=== PATIENT | female | born 1955 | race Caucasian/White ===

== ENCOUNTER 2019-12-14 13:40 | Emergency (ER) | payer OTHER, MEDICAID ==
[~2019-12-14] VITALS: Ht 167.6 cm; Wt 88.0 kg
[~2019-12-14 13:40] MED LIST: AMIT50TA3; ASPI81TA10; DICL1GEL26; HYDR-2595; HYDR2TAB2; LIDO5DIS21; ROPI0.5T18; SIMV-13
[2019-12-14 14:35] VITALS: BP 139/67
[2019-12-14] MEDS ORDERED: KETOROLAC TROMETH 60MG/2ML VIAL IM ONE (14:45)
== END 2019-12-14 15:35 | disposition home or self-care (01) ==
LOC: ER 13:40
DX: S60.221A Contusion of right hand, initial encounter (principal); E78.5 Hyperlipidemia, unspecified; I10 Essential (primary) hypertension; Z88.1 Allergy status to other antibiotic agents; Z90.49 Acquired absence of other specified parts of digestive tract; Z79.899 Other long term (current) drug therapy; W20.8XXA Other cause of strike by thrown, projected or falling object, initial encounter; Y93.89 Activity, other specified; Y92.098 Other place in other non-institutional residence as the place of occurrence of the external cause; Y99.8 Other external cause status
CPT/HCPCS: 73110; 73130; 96372; 99283; J1885

== ENCOUNTER 2025-04-14 10:00 | Inpatient (IN) | payer OTHER, MEDICAID ==
[~2025-04-14] VITALS: Ht 167.6 cm; Wt 94.5 kg
[~2025-04-14 10:00] MED LIST changes: +AMIT50TA12; -AMIT50TA3; -ROPI0.5T18; +ROPI0.5T26; -SIMV-13; +SIMV40TA18
--- NOTE | 2025-04-14 10:35 | ED.PDOC ---
History of Present Illness HPI Comments 70-year-old female BIBA with grandchild by bedside with prior medical history of arthritis, high lipids, hypertension, CHF, DVT X three days ago-diagnosed, CVA X4 recently in October; surgical history of hip surgery, knee surgery, C- section, gastric bypass, cholecystectomy, tonsillectomy and then chief complaint of chest pain. EMS report on the patient sitting on the couch, still when she sudden sharp pain of chest pain which was a 7/10 initially. Patient states on the chest pain going from the chest up to the neck. In route the patient was given 20 gauge one nitro, answering 124 g of aspirin which brought the chest pain down to a 5/10. Patient was recently diagnosed with a PE on the left lower extremity on Wednesday of 04/09/2025. Denies chills, fever, N/V/D, SOB. No other associated symptoms, modifiers, recent injuries or sick contacts present at this time. Chief Complaint: Chest Pain Time Seen by MD: 10:00 Primary Care Provider: SUZY LANGE Reviewed Notes: Nurses Notes, Solar Systems Designer Notes, Medications, Allergies Allergies: Coded Allergies: Erythromycin (Verified Allergy, 05/24/13) Home Meds Reported Medications Hydromorphone Hcl (Hydromorphone Hcl) 2 Mg Tab, 2, #25 09/27/13 Diclofenac Sodium (Topical) (Voltaren) 1 % Gel, 1, #100 09/27/13 Aspirin (Aspirin Ec Low Dose) 81 Mg Tab, 81, #100 09/27/13 Simvastatin (Simvastatin) 40 Mg Tab, 40, #30 09/27/13 Lidocaine (LIDODERM 5% TOPICAL PATCH) 1 Patch Ph, 1, #60 09/27/13 Ropinirole Hydrochloride (Ropinirole Hcl) 0.5 Mg Tab, 0.5, #90 09/27/13 Hydrocodone-Acetaminophen (Hydrocodone/Acetaminophen) 1 Tab Tab, 1, #150 09/27/13 Amitriptyline Hcl (Amitriptyline Hcl) 50 Mg Tab, 50, #30 09/27/13 Information Source: Patient, Relative (GrandChild) Mode of Arrival: EMS Severity: Moderate Timing: Minutes Duration: Since onset, Minutes Prehospital treatment: None Past Medical History PAST MEDICAL HISTORY: Arthritis, CHF, CVA, High Lipids, HTN Past Medical History (Other): DVT Surgical History: Cholecystectomy, , Tonsillectomy Surgical History (Other): Hip surgery, knee surgery, gastric bypass 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 MACHINE OPERATOR 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: No Pertinent 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 MACHINE 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 History Family History Family History: Reviewed,noncontributory to illness, Unknown Social History Smoker: Non-Smoker Alcohol: Unknown Drugs: Unknown Lives In: Home Constitutional: denies: chills, diaphoresis, fatigue, fever, malaise, sweats, weakness, others EENTM: denies: blurred vision, double vision, ear bleeding, ear discharge, ear drainage, ear pain, ear ringing, eye pain, eye redness, hearing loss, mouth pain, mouth swelling, nasal discharge, nose bleeding, nose congestion, nose pain, photophobia, tearing, throat pain, throat swelling, voice changes, others Respiratory: denies: cough, hemoptysis, orthopnea, SOB at rest, shortness of breath, SOB with excertion, stridor, wheezing, others Cardiovascular: reports: chest pain; denies: dizzy spells, diaphoresis, Dyspnea on exertion, edema, irregular heart beat, left arm pain, lightheadedness, palpitations, PND, syncope, others Gastrointestinal: denies: abdomen distended, abdominal pain, blood streaked bowels, constipated, diarrhea, dysphagia, difficulty swallowing, hematemesis, melena, nausea, poor appetite, poor fluid intake, rectal bleeding, rectal pain, vomiting, others Genitourinary: denies: abnormal vagina bleeding, burning, dyspareunia, dysuria, flank pain, frequency, hematuria, incontinence, pain, , vagina discharge, urgency, others Neurological: denies: dizziness, fainting, headache, left sided numbness, left sided weakness, numbness, paresthesia, pre-existing deficit, right sided numbness, right sided weakness, seizure, speech problems, tingling, tremors, weakness, others Musculoskeletal: denies: back pain, gout, joint pain, joint swelling, muscle pain, muscle stiffness, neck pain, others Integumetry: denies: bruises, change in color, change in hair/nails, dryness, laceration, lesions, lumps, rash, wounds, others Allergic/Immunocompromised: denies: Difficulty Healing, Frequent Infections, Hives, Itching, others Hematologic/Lymphatic: denies: anemia, blood clots, easy bleeding, easy bruising, swollen glands, others Endocrine: denies: excessive hunger, excessive sweating, excessive thirst, excessive urination, flushing, intolerance to cold, intolerance to heat, unexplained weight gain, unexplained weight loss, others Psychiatric: denies: anxiety, bipolar disorder, depression, hopeless, panic disorder, schizophrenia, sleepless, suicidal, others All Other Systems: Reviewed and Negative Physical Exam General Appearance: Moderate Distress, Normal HEENT: Normal ENT Inspection, Pharynx Normal, TMs Normal Neck: Full Range of Motion, Non-Tender, Normal, Normal Inspection Respiratory: Chest Non-Tender, Lungs Clear, No Accessory Muscle Use, No Respiratory Distress, Normal Breath Sounds Cardiovascular: No Edema, No JVD, No Murmur, No Gallop, Normal Peripheral Pulses, Regular Rate/Rhythm Breast Exam: Deferred Gastrointestinal: No Organomegaly, Non Tender, No Pulsatile Mass, Normal Bowel Sounds, Soft Genitalia: Deferred Pelvic: Deferred Rectal: Deferred Extremities: No calf tenderness, Normal capillary refill, Normal inspection, Normal range of motion, Non-tender, No pedal edema Musculoskeletal : Apperance: Normal Neurologic: Alert, digital strategy specialist II-XII nml as Tested, No Motor Deficits, Normal Affect, Normal Mood, No Sensory Deficits Cerebellar Function: NOT DONE Reflexes: NOT DONE Skin: Dry, Normal Color, Warm Peripheral Pulses: 3+ Radial (R), 3+ Radial (L) Lymphatic: No Adenopathy Was a procedure done? Was a procedure done?: No Differential Dx Considerations may include: CHF Electrolyte imbalance X-Ray, Labs, Meds, VS Vital Signs Date Time Temp Pulse Resp B/P (MAP) Pulse Ox O2 Delivery O2 Flow Rate FiO2 04/14/25 12:00 69 04/14/25 11:28 66 04/14/25 10:54 63 11 100 Room Air* 0 21 04/14/25 10:54 98.8 63 11 97/51 (66) 100 98.8 04/14/25 10:14 65 04/14/25 10:09 97.9 73 22 107/93 (98) 97 97.9 Lab Test 04/14/25 10:48 Range/Units White Blood Count 3.9 L 4.4-10.8 10^3/uL Red Blood Count 3.81 L 4.0-5.20 10^6/uL Hemoglobin 10.7 L 12.2-16.2 g/dL Hematocrit 33.1 L 36.0-46.0 % Mean Corpuscular Volume 86.9 80.0-100.0 fL Mean Corpuscular Hemoglobin 28.2 28.0-32.0 pg Mean Corpuscular Hemoglobin Concent 32.4 32.0-36.0 g/dL Red Cell Distribution Width 15.1 H 11.8-14.3 % Platelet Count 224 140-450 10^3/uL Mean Platelet Volume 7.3 6.9-10.8 fL Neutrophils (%) (Auto) 49.0 37.0-80.0 % Lymphocytes (%) (Auto) 40.1 10.0-50.0 % Monocytes (%) (Auto) 8.4 0.0-12.0 % Eosinophils (%) (Auto) 2.2 0.0-7.0 % Basophils (%) (Auto) 0.3 0.0-2.0 % Neutrophils # (Auto) 1.9 1.6-8.6 10 ^3/uL Lymphocytes # (Auto) 1.6 0.4-5.4 10 ^3/uL Monocytes # (Auto) 0.3 0-1.3 10 ^3/uL Eosinophils # (Auto) 0.1 0-0.8 10 ^3/uL Basophils # (Auto) 0 0-0.2 10 ^3/uL Nucleated Red Blood Cells 0.1 % Sodium Level 140 136-145 mmol/L Potassium Level 4.5 3.5-5.1 mmol/L Chloride Level 103 98-107 mmol/L Carbon Dioxide Level 30 20-31 mmol/L Anion Gap 7 5-15 Blood Urea Nitrogen 20 9-23 mg/dL Creatinine 0.74 0.550-1.02 mg/dL Glomerular Filtration Rate Calc 86 >90 mL/min BUN/Creatinine Ratio 27.0 H 10.0-20.0 Serum Glucose 102 74-106 mg/dL Calcium Level 9.5 8.7-10.4 mg/dL Troponin I High Sensitivity 11 </=34 ng/L B-Type Natriuretic Peptide 209.41 0-100 pg/mL [facility] [id number] [place] [id number] Ph: [phone] DIAGNOSTIC IMAGING Diagnostic Imaging Report : [id number] Signed PATIENT: MARTHA DAVIS ACCT: [id number] UNIT: [id number] : 1955 LOC: ER ROOM / BED: / AGE / SEX: 70 / F ADM STATUS: REG ER SERVICE 1040 ORDERING PHYSICIAN: MONIQUE OVERTON MD PROCEDURE(s): CXRP - CHEST PORTABLE REASON: sob ORDER NUMBER(s): [id number], ACCESSION NUMBER(s): [id number] XY CHEST PORTABLE, HISTORY: sob COMPARISON: None None TECHNICAL DATA: 1 view of the chest was obtained. FINDINGS: Lines and tubes: None Cardiomediastinal silhouette: normal Pulmonary vasculature: normal Lung expansion: normal Lung airspace: normal Lung interstitium: normal Pleura: normal Pneumothorax: no Bones: Unremarkable Other: no IMPRESSION: No acute intrathoracic abnormality. ATED BY: PIERRE HENSLEY MD DICTATED DATE/TIME: 04/14/25 112 SIGNED BY: PIERRE HENSLEY MD SIGNED DATE/TIME: 04/14/25 112 CC: Patient alert. Complaining of chest pain shortness a breath. Completing sentences. Vitals stable. Recently in this hospital. BNP slightly elevated. Was given Lasix. Blood pressure on the low side. EKG reviewed does not show any acute changes. Echocardiogram. Cardiology consultation. Explained to the patient that she will be admitted for further workup of CHF. Continue monitoring. Time of 1ST Reevaluation: 10:30 Reevaluation 1ST: Unchanged Patient Education/Counseling: Diagnosis, Treatment, Prognosis Family Education/Counseling: Diagnosis, Treatment, Prognosis Departure 1 Departure Time of Disposition: 12:49 Impression: Primary Impression: CHF (congestive heart failure) Qualified Codes: I50.43 - Acute on chronic combined systolic (congestive) and diastolic (congestive) heart failure Additional Impression: Cardiomyopathy Disposition: ADMITTED INPATIENT Admit to: Med Surg Condition: Guarded Critical Care Note Critical Care Time?: Yes (90 min-critical care time only) Critical care comment: Monitoring for worsening of chest pain heart failure Stability Stability form required: No Heart Score Heart Score: Heart Score Response (Comments) Value History Slightly Suspicious 0 EKG Normal 0 Age >65 2 Risk Factors >3 or Hx ASHD 2 Troponin Normal limit 0 Total 4 I personally scribed for MONIQUE OVERTON MD ([email or web address]) on 04/14/25 at 10:35. E lectronically submitted by Harish Del Cid ([email or web address]). I personally scribed for MONIQUE OVERTON MD ([email or web address]) on 04/14/25 at 11:52. Electronically submitted by Harish Del Cid ([email or web address]). MONIQUE OVERTON MD April 14, 2025 10:35
[2025-04-14 10:54] VITALS: PULSE 63; RESP 11; O2SAT 100
[2025-04-14 11:04] LABS: Basophils # (auto) 0 10 ^3/uL (0-0.2); Basophils % (auto) 0.3 % (0.0-2.0); Eosinophils # (auto) 0.1 10 ^3/uL (0-0.8); Eosinophils % (auto) 2.2 % (0.0-7.0); Hematocrit 33.1 % (36.0-46.0); Hemoglobin 10.7 g/dL (12.2-16.2); Lymphocytes # (auto) 1.6 10 ^3/uL (0.4-5.4); Lymphocytes % (auto) 40.1 % (10.0-50.0); Mean Corpuscular Hemoglobin 28.2 pg (28.0-32.0); Mean Corpuscular Hgb Conc. 32.4 g/dL (32.0-36.0); Mean Corpuscular Volume 86.9 fL (80.0-100.0); Monocytes # (auto) 0.3 10 ^3/uL (0-1.3); Monocytes % (auto) 8.4 % (0.0-12.0); Neutrophils # (auto) 1.9 10 ^3/uL (1.6-8.6); Nucleated Red Blood Cells % 0.1 %; Platelet Count (auto) 224 10^3/uL (140-450); Red Blood Cells 3.81 10^6/uL (4.0-5.20); Red Cell Distribution Width 15.1 % (11.8-14.3); White Blood Cell 3.9 10^3/uL (4.4-10.8)
[2025-04-14 11:10] LABS: Chloride 103 mmol/L (98-107); Potassium 4.5 mmol/L (3.5-5.1); Sodium 140 mmol/L (136-145)
[2025-04-14 11:11] LABS: Anion Gap 7 (5-15); Calcium 9.5 mg/dL (8.7-10.4); Carbon Dioxide 30 mmol/L (20-31)
[2025-04-14 11:16] LABS: Blood Urea Nitrogen 20 mg/dL (9-23); Glucose 102 mg/dL (74-106)
--- NOTE | 2025-04-14 11:24 | DVH ---
XY CHEST PORTABLE, HISTORY: sob COMPARISON: None None TECHNICAL DATA: 1 view of the chest was obtained. FINDINGS: Lines and tubes: None Cardiomediastinal silhouette: normal Pulmonary vasculature: normal Lung expansion: normal Lung airspace: normal Lung interstitium: normal Pleura: normal Pneumothorax: no Bones: Unremarkable Other: no IMPRESSION: No acute intrathoracic abnormality.
[2025-04-14 12:47] LABS: Urine Bacteria None Seen /hpf (None Seen)
[2025-04-14 12:58] LABS: Urine Blood Negative /uL (Negative); Urine Clarity Clear (Clear); Urine Color Light-Yellow (Yellow); Urine Protein, UAD Negative (Negative); Urine Specific Gravity 1.014 (1.001-1.035); Urine Squamous Epithelial Cell FEW /hpf (<5); Urine Urobilinogen 2 mg/dL (Negative)
[2025-04-14] MEDS: IOHEXOL 350 MG/ML 100ML IJ ONE ×2 (14:34→15:50)
--- NOTE | 2025-04-14 14:52 | DVH ---
US BiLat Lower DVT HISTORY: states she has new diagnosis DVT COMPARISON: None TECHNIQUE: Duplex doppler evaluation of the deep venous system of the lower extremity from the common femoral veins, superficial femoral vein, great saphenous vein, deep femoral vein, popliteal vein, an d calf veins, including color doppler and spectral/pulsed waveform analysis, was performed. FINDINGS: Right: - Common femoral vein: Compressible - Deep femoral vein: Compressible - Femoral vein: Compressible - Popliteal vein: Compressible - Posterior tibial vein: Waveforms present - Other: Nothing Left: - Common femoral vein: Compressible - Deep femoral vein: Compressible - Femoral vein: Compressible - Popliteal vein: Compressible - Posterior tibial vein: Waveforms present - Other: Avascular structure along the left popliteal fossa and medial knee could be a Gallardo cyst. IMPRESSION: No right or left lower extremity deep venous thrombosis.
[2025-04-14] MEDS ORDERED: APIX5TAB PO ×2 (15:24→22:16)
[2025-04-14] MEDS ORDERED: AMIO100T3 PO (15:24)
[2025-04-14] MEDS ORDERED: FURO40TA4 PO (15:24)
[2025-04-14] MEDS ORDERED: ATOR40TA52 PO (15:24)
[2025-04-14] MEDS ORDERED: OXYC-998 PO (15:24)
[2025-04-14] MEDS ORDERED: ROPI1TAB78 PO (15:24)
[2025-04-14] MEDS ORDERED: FLUO-470 PO (15:24)
[2025-04-14] MEDS ORDERED: OXYC5CAP69 PO (15:24)
[2025-04-14] MEDS ORDERED: ASPI1TAB20 PO (15:24)
--- NOTE | 2025-04-14 16:16 | DVHHP2 ---
History of Present Illness Reason for Visit: Chest pain History of Present Illness Yari Siddiqui is a 70-year-old female with past medical history of mitral valve stenosis, CHF, hyperlipidemia, chronic pain, arthritis, CVA, and new diagnosis of DVT Wednesday04/11/2025, who came in for sudden onset of chest pain and shortness of breath. Patient had an ultrasound of left leg on Wednesday that showed a DVT. Her doctor increased her Eliquis from 5 mg to 10 mg BID. This morning she got up was walking in her kitchen when she had a sudden onset of chest pain that radiated to her back and jaw with associated shortness of breath prompting her daughter to bring her to the hospital. Daughter has a print out of the critical results from the ultrasound with her. Ultrasound of bilateral lower extremities completed here shows no DVT. Patient was also seen at [place] last week regarding her mitral valve. She needs to have it replaced and they are discussing what will be the best approach. 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: CVA (October 2024, left side weakness, memory difficulties) Heme/Onc: Other (DVT) Musculoskeletal: Chronic low back pain, Osteoarthritis Past Surgical History: Cholecystectomy, , Other (gastric bypass), Total hip replacement (bilateral), Total knee replacement, Tonsillectomy Smoke: No ALCOHOL: none Drugs: None Lives: with Family Domestic Violence: Neg Review of Systems Constitutional: No: Fever, Chills, Sweats, Weakness, Malaise, Other Eyes: No: Pain, Vision change, Conjunctivae inflammation, Eyelid inflammation, Other, Redness ENT: No: Ear pain, Ear discharge, Nose pain, Nose discharge, Nose congestion, Mouth pain, Mouth swelling, Throat pain, Throat swelling, Other Respiratory: Shortness of breath; No: Cough, Dry, SOB with excertion, Wheezing, Hemoptysis, Pleuritic Pain, Sputum, Wheezing, Other Cardiovascular: Chest Pain (radiates to jaw and back); No: Palpitations, Orthopnea, Paroxysmal Noc. Dyspnea, Edema, Lt Headedness, Other Gastrointestinal: No: Nausea, Vomiting, Abdominal Pain, Diarrhea, Constipation, Melena, Hematochezia, Other Genitourinary: No Dysuria, No Frequency, No Incontinence, No Hematuria, No Retention, No Other Musculoskeletal: No: other, neck pain, shoulder pain, arm pain, back pain, hand pain, leg pain, foot pain Skin: No: Rash, Lesions, Jaundice, Bruising, Other Allergies: Coded Allergies: Erythromycin (Verified Allergy, 05/24/13) Medications Current Medications Medications Dose Ordered Sig/Zackery Route Start Time Stop Time Status Last Admin Dose Admin Apixaban 10 mg BID PO 04/14/25 22:00 UNV Aspirin 81 mg DAILY PO 04/15/25 10:00 UNV Fluoxetine HCl 20 mg HS PO 04/14/25 22:00 UNV Furosemide 40 mg DAILY PO 04/15/25 10:00 UNV Patient Own Medication 1 tab DAILY PO 04/15/25 10:00 UNV Patient Own Medication 1 tab HS PO 04/14/25 22:00 UNV Patient Own Medication 1 cap BID PO 04/14/25 22:00 UNV Patient Own Medication 10 mg TID PO 04/14/25 22:00 UNV Patient Own Medication 1 tab TID PO 04/14/25 22:00 UNV Exam Vital Signs Vital Signs Date Time Temp Pulse Resp B/P (MAP) Pulse Ox O2 Delivery O2 Flow Rate FiO2 04/14/25 15:41 98.2 67 13 96/54 (68) 94 98.2 04/14/25 10:54 Room Air* 0 21 General Appearance: Alert, Oriented X3, Cooperative, mild distress HEENT: Atraumatic, PERRLA Respiratory: Clear to auscultation, Normal air movement Cardiovascular: Normal S1, Normal S2, No murmurs, Other (Low BP) Abdominal: Normal bowel sounds, Soft, No tenderness Extremities: No clubbing, No cyanosis, No edema, Normal pulses, No tenderness/swelling Skin: No rashes, No breakdown, No significant lesion Neuro: Normal gait, Normal speech, Strength at 5/5 X4 ext, Normal tone Psych/Mental Status: Mental status NL, Mood NL Labs/Xrays Labs Test 04/14/25 12:34 04/14/25 10:48 Range/Units Urine Color Light-yellow Yellow Urine Clarity Clear Clear Urine pH 7.0 5.0-9.0 Urine Specific Welsh 1.014 1.001-1.035 Urine Protein Negative Negative Urine Ketones Negative Negative Urine Blood Negative Negative /uL Urine Nitrite Negative Negative Urine Bilirubin Negative Negative Urine Urobilinogen 2 H Negative mg/dL Urine Leukocyte Esterase 1+ Negative /uL Urine RBC 2 0 - 4 /hpf Urine Microscopic WBC 0-5 /HPF Urine Squamous Epithelial Cells Few <5 /hpf Urine Bacteria None seen None Seen /hpf Urine Glucose Normal Normal mg/dL White Blood Count 3.9 L 4.4-10.8 10^3/uL Red Blood Count 3.81 L 4.0-5.20 10^6/uL Hemoglobin 10.7 L 12.2-16.2 g/dL Hematocrit 33.1 L 36.0-46.0 % Mean Corpuscular Volume 86.9 80.0-100.0 fL Mean Corpuscular Hemoglobin 28.2 28.0-32.0 pg Mean Corpuscular Hemoglobin Concent 32.4 32.0-36.0 g/dL Red Cell Distribution Width 15.1 H 11.8-14.3 % Platelet Count 224 140-450 10^3/uL Mean Platelet Volume 7.3 6.9-10.8 fL Neutrophils (%) (Auto) 49.0 37.0-80.0 % Lymphocytes (%) (Auto) 40.1 10.0-50.0 % Monocytes (%) (Auto) 8.4 0.0-12.0 % Eosinophils (%) (Auto) 2.2 0.0-7.0 % Basophils (%) (Auto) 0.3 0.0-2.0 % Neutrophils # (Auto) 1.9 1.6-8.6 10 ^3/uL Lymphocytes # (Auto) 1.6 0.4-5.4 10 ^3/uL Monocytes # (Auto) 0.3 0-1.3 10 ^3/uL Eosinophils # (Auto) 0.1 0-0.8 10 ^3/uL Basophils # (Auto) 0 0-0.2 10 ^3/uL Nucleated Red Blood Cells 0.1 % Sodium Level 140 136-145 mmol/L Potassium Level 4.5 3.5-5.1 mmol/L Chloride Level 103 98-107 mmol/L Carbon Dioxide Level 30 20-31 mmol/L Anion Gap 7 5-15 Blood Urea Nitrogen 20 9-23 mg/dL Creatinine 0.74 0.550-1.02 mg/dL Glomerular Filtration Rate Calc 86 >90 mL/min BUN/Creatinine Ratio 27.0 H 10.0-20.0 Serum Glucose 102 74-106 mg/dL Calcium Level 9.5 8.7-10.4 mg/dL Troponin I High Sensitivity 11 </=34 ng/L B-Type Natriuretic Peptide 209.41 0-100 pg/mL US BiLat Lower DVT FINDINGS: Right: - Common femoral vein: Compressible - Deep femoral vein: Compressible - Femoral vein: Compressible - Popliteal vein: Compressible - Posterior tibial vein: Waveforms present - Other: Nothing Left: - Common femoral vein: Compressible - Deep femoral vein: Compressible - Femoral vein: Compressible - Popliteal vein: Compressible - Posterior tibial vein: Waveforms present - Other: Avascular structure along the left popliteal fossa and medial knee could be a Gallardo cyst. IMPRESSION: No right or left lower extremity deep venous thrombosis. XY CHEST PORTABLE, FINDINGS: Lines and tubes: None Cardiomediastinal silhouette: normal Pulmonary vasculature: normal Lung expansion: normal Lung airspace: normal Lung interstitium: normal Pleura: normal Pneumothorax: no Bones: Unremarkable Other: no IMPRESSION: No acute intrathoracic abnormality. 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 WORKER Procedure Category Date Status Time Ct Angio Chest CT 04/14/25 Taken Contrast 14:00 Bilat Lower Dvt US 04/14/25 Resulted 14:00 Apixaban (Eliquis) PHA 04/14/25 Logged 22:00 Aspirin Enteric PHA 04/15/25 Logged Coated Tablet 10:00 Fluoxetine Capsule PHA 04/14/25 Logged (Prozac Capsule) 22:00 Furosemide Tablet PHA 04/15/25 Logged (Lasix Tablet) 10:00 (Nf) Amiodarone Hcl PHA 04/15/25 Logged 10:00 (Nf) Atorvastatin PHA 04/14/25 Logged Calcium 22:00 (Nf) Oxycodone Base PHA 04/14/25 Logged (Xtampza Er) 22:00 (Nf) Oxycodone Hcl PHA 04/14/25 Logged (Oxycodone Hydrochlor 22:00 (Nf) Ropinirole PHA 04/14/25 Logged Hydrochloride 22:00 Date of Service: April 14, 2025 Billing Provider: MURALI MCNAIR Common Visit Codes: [id number]-[id number] INP/OBS CARE (MOD) MURALI MCNAIR April 14, 2025 16:16
[2025-04-14] MEDS ORDERED: HYDROcodone-ACET 5/325MG TAB PO PRN (18:15)
[2025-04-14] MEDS ORDERED: ACETAMINOPHEN 325 MG TAB PO PRN (18:15)
[2025-04-14] MEDS ORDERED: ONDANSETRON HCL 4 MG/2 ML VIAL IV PRN (18:15)
[2025-04-14 19:28] VITALS: PULSE 71; RESP 15; O2SAT 95
[2025-04-14] MEDS: OXYCODONE W/ ACETAMINOPHEN 5/325MG TABLET PO PRN (20:58)
--- NOTE | 2025-04-14 21:39 | DVH ---
Procedure: CT CT ANGIO CHEST CONTRAST Reason for study/Clinical History: R/O PE, has DVT Comparison Study: None Exam Date: 04/14/2025 03:34 PM Radiation Dose Information: CT Dose: CTDI volume is 25.4 mGy. Dose-length product is 905.2 mGy*cm Contrast: Type of contrast: Omni 350 Contrast inject: 70 mL Contrast wasted:0 TECHNIQUE: After the uneventful administration of intravenous contrast intravenously, CT imaging was performed through the chest. Coronal and sagittal reformations were performed by the technologist. FINDINGS: Lower Neck: Visualized portions of the thyroid gland are unremarkable. Aorta and Vasculature: Normal caliber of thoracic aorta. Lymph Nodes: No enlarged intrathoracic lymph nodes. Mediastinum: Heart size is normal. There is no pericardial effusion. The esophagus is unremarkable. Lungs: No focal consolidation, pleural effusion or significant pneumothorax. No suspicious pulmonary nodule or mass. Musculoskeletal: No acute osseous abnormality. Upper abdomen: Limited portions of the upper abdomen are unremarkable. IMPRESSION: 1. No evidence of acute intrathoracic abnormality identified. 2. No pulmonary emboli or findings of pulmonary artery hypertension. 3. All CT scans at this medical facility are performed using dose modulation techniques as appropriate to a performed exam including the following: Automated exposure control was utilized; adjustment of t he MA and/or KV according to patient size; and use of iterative reconstruction technique. HS:Y
[2025-04-14 21:52] VITALS: BP 93/48; PULSE 59; RESP 16; RESP 18; TEMP 98.6; O2SAT 96; O2SAT 97
[2025-04-14] MEDS: [UNRECOGNIZED DRUG - OTHER] PO SCH (22:00)
[2025-04-14] MEDS: OXYCODONE HCL 10 MG PO SCH (22:00)
[2025-04-14] MEDS: ROPINIROLE HYDROCHLORIDE 1 MG PO SCH (22:00)
[2025-04-14] MEDS ORDERED: OXYC325T14 PO (22:16)
[2025-04-14] MEDS: SODIUM CHLOR 0.9% PF (SALINE LOCK) 10ML VIAL/SYR IV SCH (22:29)
[2025-04-14] MEDS: ATORVASTATIN 20 MG TAB PO SCH (22:57)
[2025-04-14] MEDS: FLUoxetine HCL 20 MG CAP PO SCH (22:57)
[2025-04-14] MEDS: APIXABAN 5 MG TAB PO SCH (22:58)
[2025-04-15] VITALS (7 sets, daily range): BP systolic 90–119; BP diastolic 41–66; PULSE 61–87; RESP 17–19; TEMP 97.9–98.5; O2SAT 95–100
[2025-04-15] MEDS ORDERED: FLUO20TA42 PO (08:54)
[2025-04-15] MEDS: AMIODARONE HCL 200 MG TAB PO SCH (10:09)
[2025-04-15] MEDS: ASPirin-EC 81 mg tab PO SCH (10:10)
[2025-04-15] MEDS: FUROSEMIDE 40 MG TAB PO SCH (10:12)
--- NOTE | 2025-04-15 16:23 | DVHINCON2 ---
Date Seen: April 15, 2025 Referring Physician MD Venita Reason for Consultation Chest pain History of Present Illness This is a 70-year-old female who presented to the emergency room via EMS with a chief complaint of chest pain. Describes the chest pain as substernal, sharp in nature, constant for a few minutes, nonradiating, non provoked, and radiating throughout her body as a tingling sensation. Per patient, she was recently diagnosed with a left lower extremity DVT this past week and thought a clot had probably dislodged to her lungs. She is currently on Eliquis therapy and has been referred to a fruit picker as she has been on Eliquis for a while yet developing further blood clots. At time of assessment she denied any further cardiac symptoms. She underwent multiple 12 lead electrocardiograms revealing a normal sinus rhythm. Serial troponin levels are negative. Follows up in the outpatient setting with primary oim consultant at [facility] who she saw a week ago. She is scheduled to undergo open heart surgery for mitral valve stenosis and i nferior vena cava filter within next few weeks. Reports undergoing a cardiac catheterization without catheter based intervention given normal coronaries on 2023. 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 Past Medical History Past medical history reviewed. No other significant than mentioned above. Past Surgical History Cholecystectomy Gastric bypass Bilateral hip replacement Knee replacement Tonsillectomy Appendectomy Family History: Cardiovascular disease G8 MOTHER G8 FATHER Chronic obstructive pulmonary disease G8 FATHER Colon cancer G8 BROTHER G8 BROTHER Diabetes mellitus FH: CHF (congestive heart failure) G8 FATHER Family History Family history reviewed. Significant for father with quadruple CABG. Social History Denies the use of illicit drugs or tobacco use. Admits to rarely alcohol use. Allergies: Coded Allergies: Erythromycin (Verified Allergy, Unknown, 04/14/25) Home Meds Reported Medications Fluoxetine Hcl (Fluoxetine Hcl) 20 Mg Tab, 1 TAB PO HS, #30 TAB 04/15/25 Oxycodone W/ Acetaminophen (Apap/Oxycodone) 1 Tab Tab, 1 TAB PO Q8HP, TAB 04/14/25 Apixaban Base (ELIQUIS) 5 Mg Tab, 10 MG PO BID for 7 Days, TAB 10MG BID X 7 DAYS THEN 5MG PO BID FOR AT LEAST 6 MONTHS FOR DVT/PE TREATMENT 04/14/25 Aspirin (Aspir-81) 81 Mg Tab, 1 TAB PO DAILY, #30 TAB 5 Refills 04/14/25 Ropinirole Hydrochloride (Ropinirole Hcl) 1 Mg Tab, 1 TAB PO TID 04/14/25 Oxycodone Base (Xtampza ER) 9 Mg Cap, 1 CAP PO BID 04/14/25 Atorvastatin Calcium (ATORVASTATIN CALCIUM) 40 Mg Tab, 1 TAB PO HS 04/14/25 Furosemide (Furosemide) 40 Mg Tab, 1 TAB PO DAILY 04/14/25 Amiodarone Hcl (AMIODARONE HCL) 100 Mg Tab, 1 TAB PO DAILY 04/14/25 Discontinued Reported Medications Apixaban Base (ELIQUIS) 5 Mg Tab, 10 MG PO BID for 7 Days, #28 TAB 10MG BID X 7 DAYS THEN 5MG PO BID FOR AT LEAST 6 MONTHS FOR DVT/PE TREATMENT 04/14/25 Oxycodone HCl (Oxycodone Hydrochloride) 10 Mg Tab, 10 MG PO TID, TAB 04/14/25 Fluoxetine HCl (Fluoxetine HCl) 20 Mg Cap, 1 CAP PO HS 04/14/25 Hydromorphone Hcl (Hydromorphone Hcl) 2 Mg Tab, 2, #25 09/27/13 Diclofenac Sodium (Topical) (Voltaren) 1 % Gel, 1, #100 09/27/13 Aspirin (Aspirin Ec Low Dose) 81 Mg Tab, 81, #100 09/27/13 Simvastatin (Simvastatin) 40 Mg Tab, 40, #30 09/27/13 Lidocaine (LIDODERM 5% TOPICAL PATCH) 1 Patch Ph, 1, #60 09/27/13 Ropinirole Hydrochloride (Ropinirole Hcl) 0.5 Mg Tab, 0.5, #90 09/27/13 Hydrocodone-Acetaminophen (Hydrocodone/Acetaminophen) 1 Tab Tab, 1, #150 09/27/13 Amitriptyline Hcl (Amitriptyline Hcl) 50 Mg Tab, 50, #30 09/27/13 Home Meds Home medications reviewed. Current Medications Current Medications Medications (Trade) Dose Ordered Sig/Zackery Route PRN Reason Start Time Stop Time Status Last Admin Apixaban (Eliquis) 10 mg BID PO 04/14/25 22:00 04/19/25 10:01 04/15/25 10:11 Aspirin (Ecotrin Enteric Coated Tablet) 81 mg DAILY PO 04/15/25 10:00 04/15/25 10:10 Fluoxetine HCl (PROzac CAPSULE) 20 mg HS PO 04/14/25 22:00 04/14/25 22:57 Furosemide (Lasix Tablet) 40 mg DAILY PO 04/15/25 10:00 04/15/25 10:12 Amiodarone HCl (Cordarone Tablet) 100 mg DAILY PO 04/15/25 10:00 04/15/25 10:09 Atorvastatin Calcium (Lipitor) 40 mg HS PO 04/14/25 22:00 04/14/25 22:57 Patient Own Medication 1 cap BID PO 04/14/25 22:00 Patient Own Medication 10 mg TID PO 04/14/25 22:00 04/15/25 13:30 Patient Own Medication 1 tab TID PO 04/14/25 22:00 Sodium Chloride (Saline Lock Ns) 10 ml Q8HR IV 04/14/25 22:00 04/15/25 13:30 Acetaminophen (Tylenol Tablet) 650 mg Q6HP PRN PO PAIN SCALE 1-3 OR TEMP>100.4 04/14/25 18:15 Acetaminophen/ Hydrocodone Bitart ([place] 5/325MG Tab) 1 tab Q4HP PRN PO MODERATE PAIN (4-6 PAIN SCALE) 04/14/25 18:15 04/14/25 20:39 DC Ondansetron HCl (Zofran) 4 mg Q4HP PRN IV NAUSEA / VOMITING 04/14/25 18:15 Oxycodone/ Acetaminophen (Percocet 5/ 325MG Tablet) 2 tab Q8HP PRN PO PAIN SCALE 7 THRU 10 04/14/25 20:45 04/15/25 04:31 Review of Systems Constitutional: No symptom reported Ears, Nose, & Throat: No symptom reported Eyes: No symptom reported Neurological: No symptoms reported Pulmonary/Respiratory: No symptom reported Cardiovascular: Chest pain Gastrointestinal: No symptom reported Genitourinary: No symptom reported Musculoskeletal: No symptom reported Skin: No symptom reported Psychiatric: No symptom reported Endocrine: No symptom reported Hemotologic/Lymphatic: No symptom reported Vital Signs Vital Signs Date Time Temp Pulse Resp B/P (MAP) Pulse Ox O2 Delivery O2 Flow Rate FiO2 04/15/25 13:11 97.9 87 17 119/66 (83) 100 97.9 04/15/25 08:05 Room Air* 0 21 Physical Exam General Appearance: Cooperative. Well developed. Obese. In no acute distress Head Exam: Normal inspection Neck Exam: Normal inspection. Non-tender. Normal alignment Pulmonary/Respiratory: Chest non-tender. Clear bilateral breath sounds Cardiovascular/Chest: Regular rate and rhythm. S1, S2. NSR. Diastolic murmur. No JVD. Peripheral Pulses: 2+ Radial (R). 2+ Radial (L). 2+ Pedal (R). 2+ Pedal (L) Abdominal Exam: Normal bowel sounds. Soft. Nontender. No hepatospenomegaly. No masses Ankle Exam: Negative ankle edema Lower extremities: Negative lower extremity edema Neuro/Mental Status: A&O x4. Coherent Thoughts/Psych: Normal thought pattern. Appropriate mood and affect. Good judgement and insight Appearance: In no acute distress Skin Exam: Normal inspection. Normal color. Warm. Dry Labs/Diagnostic Data Labs Test 04/15/25 15:58 04/14/25 12:34 04/14/25 10:48 Range/Units Urine Color Light-yellow Yellow Urine Clarity Clear Clear Urine pH 7.0 5.0-9.0 Urine Specific [place] 1.014 1.001-1.035 Urine Protein Negative Negative Urine Ketones Negative Negative Urine Blood Negative Negative /uL Urine Nitrite Negative Negative Urine Bilirubin Negative Negative Urine Urobilinogen 2 H Negative mg/dL Urine Leukocyte Esterase 1+ Negative /uL Urine RBC 2 0 - 4 /hpf Urine Microscopic WBC 0-5 /HPF Urine Squamous Epithelial Cells Few <5 /hpf Urine Bacteria None seen None Seen /hpf Urine Glucose Normal Normal mg/dL White Blood Count 3.9 L 4.4-10.8 10^3/uL Red Blood Count 3.81 L 4.0-5.20 10^6/uL Hemoglobin 10.7 L 12.2-16.2 g/dL Hematocrit 33.1 L 36.0-46.0 % Mean Corpuscular Volume 86.9 80.0-100.0 fL Mean Corpuscular Hemoglobin 28.2 28.0-32.0 pg Mean Corpuscular Hemoglobin Concent 32.4 32.0-36.0 g/dL Red Cell Distribution Width 15.1 H 11.8-14.3 % Platelet Count 224 140-450 10^3/uL Mean Platelet Volume 7.3 6.9-10.8 fL Neutrophils (%) (Auto) 49.0 37.0-80.0 % Lymphocytes (%) (Auto) 40.1 10.0-50.0 % Monocytes (%) (Auto) 8.4 0.0-12.0 % Eosinophils (%) (Auto) 2.2 0.0-7.0 % Basophils (%) (Auto) 0.3 0.0-2.0 % Neutrophils # (Auto) 1.9 1.6-8.6 10 ^3/uL Lymphocytes # (Auto) 1.6 0.4-5.4 10 ^3/uL Monocytes # (Auto) 0.3 0-1.3 10 ^3/uL Eosinophils # (Auto) 0.1 0-0.8 10 ^3/uL Basophils # (Auto) 0 0-0.2 10 ^3/uL Nucleated Red Blood Cells 0.1 % Sodium Level 140 136-145 mmol/L Potassium Level 4.5 3.5-5.1 mmol/L Chloride Level 103 98-107 mmol/L Carbon Dioxide Level 30 20-31 mmol/L Anion Gap 7 5-15 Blood Urea Nitrogen 20 9-23 mg/dL Creatinine 0.74 0.550-1.02 mg/dL Glomerular Filtration Rate Calc 86 >90 mL/min BUN/Creatinine Ratio 27.0 H 10.0-20.0 Serum Glucose 102 74-106 mg/dL Calcium Level 9.5 8.7-10.4 mg/dL B-Type Natriuretic Peptide 209.41 0-100 pg/mL Assessment Noncardiac chest pain Severe mitral valve stenosis Recent LLE DVT, on Eliquis PE ruled out Questionable thrombophilia Hx multiple CVAs x 4 with left-sided hemiparesis Hypertension Dyslipidemia Thyroid disease Obesity Plan/Recommendation (Dr. Giles) The patient with transient chest pain underwent a CT angio chest deemed to be negative for a PE. She also underwent a cardiac catheterization without catheter based intervention given normal coronaries on 2023. Continue follow-up with primary oim consultant at [facility] for eventual open heart surgery for mitral valve stenosis and IVC filter implantation. Continue follow-up with hematology to rule out thrombophilia. Continue Eliquis therapy given recent LLE DVT. There is no further cardiac workup indicated at this time. Kindly call if you need to re-consult. Thank you for allowing us to participate in this patient's care. Please call if you have any questions or concerns. This medical document was created using an electronic medical record system with voice recognition software and computerized dictation system. Although this document has been carefully reviewed, there might still be some phonetic and typographical errors. Occasional wrong-word or ``sound-alike substitutions may have occurred due to the inherent limitations of voice recognition software. These areas are purely typographical due to imperfections of the software programs and do not reflect any compromise in the patient's medical care. Please read the chart carefully and recognize, using context, where these substitutions have occurred. Plan discussed with: Patient, Other NYHA Physical activity limitations: NA Date of Service: April 15, 2025 Billing Provider: HARESH ADORNO Cardiology Common Codes: 78892-SRHFQKB INP/OBS CARE (High) HARESH ADORNO April 15, 2025 16:23
--- NOTE | 2025-04-15 17:39 | DVHDS2 ---
Discharge Summary Date of Admission April 14, 2025 at 18:06 Date of Discharge: April 15, 2025 Labs/Diagnostic Data: Laboratory Results Test 04/15/25 15:58 04/14/25 12:34 04/14/25 10:48 Troponin I High Sensitivity 9 ng/L (</=34) Urine Color Light-yellow (Yellow) Urine Clarity Clear (Clear) Urine pH 7.0 (5.0-9.0) Urine Specific [place] 1.014 (1.001-1.035) Urine Protein Negative (Negative) Urine Ketones Negative (Negative) Urine Blood Negative /uL (Negative) Urine Nitrite Negative (Negative) Urine Bilirubin Negative (Negative) Urine Urobilinogen 2 mg/dL (Negative) Urine Leukocyte Esterase 1+ /uL (Negative) Urine RBC 2 /hpf (0 - 4) Urine Microscopic WBC /HPF (0-5) Urine Squamous Epithelial Cells Few /hpf (<5) Urine Bacteria None seen /hpf (None Seen) Urine Glucose Normal mg/dL (Normal) White Blood Count 3.9 10^3/uL (4.4-10.8) Red Blood Count 3.81 10^6/uL (4.0-5.20) Hemoglobin 10.7 g/dL (12.2-16.2) Hematocrit 33.1 % (36.0-46.0) Mean Corpuscular Volume 86.9 fL (80.0-100.0) Mean Corpuscular Hemoglobin 28.2 pg (28.0-32.0) Mean Corpuscular Hemoglobin Concent 32.4 g/dL (32.0-36.0) Red Cell Distribution Width 15.1 % (11.8-14.3) Platelet Count 224 10^3/uL (140-450) Mean Platelet Volume 7.3 fL (6.9-10.8) Neutrophils (%) (Auto) 49.0 % (37.0-80.0) Lymphocytes (%) (Auto) 40.1 % (10.0-50.0) Monocytes (%) (Auto) 8.4 % (0.0-12.0) Eosinophils (%) (Auto) 2.2 % (0.0-7.0) Basophils (%) (Auto) 0.3 % (0.0-2.0) Neutrophils # (Auto) 1.9 10 ^3/uL (1.6-8.6) Lymphocytes # (Auto) 1.6 10 ^3/uL (0.4-5.4) Monocytes # (Auto) 0.3 10 ^3/uL (0-1.3) Eosinophils # (Auto) 0.1 10 ^3/uL (0-0.8) Basophils # (Auto) 0 10 ^3/uL (0-0.2) Nucleated Red Blood Cells 0.1 % Sodium Level 140 mmol/L (136-145) Potassium Level 4.5 mmol/L (3.5-5.1) Chloride Level 103 mmol/L (98-107) Carbon Dioxide Level 30 mmol/L (20-31) Anion Gap 7 (5-15) Blood Urea Nitrogen 20 mg/dL (9-23) Creatinine 0.74 mg/dL (0.550-1.02) Glomerular Filtration Rate Calc 86 mL/min (>90) BUN/Creatinine Ratio 27.0 (10.0-20.0) Serum Glucose 102 mg/dL (74-106) Calcium Level 9.5 mg/dL (8.7-10.4) B-Type Natriuretic Peptide 209.41 pg/mL (0-100) Other Laboratory Tests 04/14/25 10:48 Brief Hx & Hospital Course: This is a 70-year-old female who presented to the emergency room via EMS with a chief complaint of chest pain. Patient described the chest pain has substernal nonradiating to the arm all but radiating to all the body has a tingling cessation. Patient does have known history of recent left lower extremity DVT currently on Eliquis. Patient was ruled out for pulmonary embolism by negative CT angio. Cardiology evaluated the patient and recommended no further workup. Patient troponins are negative. Patient currently chest pain free. Patient is being discharged under stable condition with close follow up as an outpatient with the PCP and [facility] for cardiac surgery for mitral valve stenosis. Condition at Discharge: Stable Final Diagnosis/Problems List 1. Chest pain noncardiac , PE has been ruled out 2. Mitral valve stenosis 3. History of left lower extremity DVT currently on Eliquis 4. Hypertension 5. Dyslipidemia 6. History of CVA Discharge Disposition: Home SNF Discharge Will this Physician continue t: No Discharge Instruct/Medications Diet: Cardiac 2g Na,low cholest Activity: No Restrictions, As Tolerated Follow Up/Referral: Follow up with the PCP in 1-2 weeks follow up at [facility] for mitral valve surgery Medications: Resume home medication including Eliquis Discharge Statement: "Patient was advised to return to the ER or call 911 if any headaches, dizziness, shortness of breath, chest pain, abdominal pain, bleeding, fevers, or worsening of medical condition. Patient was counseled about treatment plan, medications, possible side effects, patientverbalized understanding. All questions were answered to the best of my ability. This discharge took greater then 30 minutes in planning, reviewing documentation, counseling the patient, and discussing with other team members." ASSESSMENT ASSESSMENT Assessment 1. Chest pain noncardiac , PE has been ruled out 2. Mitral valve stenosis 3. History of left lower extremity DVT currently on Eliquis 4. Hypertension 5. Dyslipidemia 6. History of CVA Date of Service: April 15, 2025 Billing Provider: GERMAINE PHELAN MD Common Visit Codes: 85953-RBY/OBS DISCH DAY >30min GERMAINE PHELAN MD April 15, 2025 17:39
--- NOTE | 2025-04-16 11:52 | DVHSR ---
APPROVED REPORT EXAM: Two-dimensional and M-mode echocardiogram with Doppler and color Doppler. Blood Pressure: 119/66 mmHg INDICATION Chest Pain RISK FACTORS Obesity: Height: 5'6", Weight: 206 DIMENSIONS LVDd4.7 (3.8-5.7cm)LA (2D)6.0 (1.9-4.0cm)Aortic Root3.2 (2.0-3.7cm) LVDs2.9 (2.5-4.0cm)LA (MM) (1.9-4.0cm)Aortic Cusp Exc1.9 (1.5-2.0cm) EF (%) 65.0 (55-70%)Rt. Atrium4.8 (1.9-4.0cm)Asc. Aorta cm IVSd1.1 (0.7-1.1cm)RV (D)4.4 (1.8-2.4cm) PWd1.1 (0.7-1.1cm) Mitral Valve MitralMitral Stenosis E wave1.45m/sMV Mean GR.4mmHg A wave1.22m/sMV Peak GR.10mmHg E/A ratio1.22D MVAcm2 DECEL [id number] 1/2 [id number] IVRTmsDop MVA2.16cm2 Aortic Valve Aortic ValveAortic Stenosis V11.35m/Pretty Mean GR.11mmHg V22.36m/Pretty Peak GR.22mmHg LVOT Diameter2.2 (1.8-2.4cm)Doppler AVA2.17cm2 Pulmonic Valve V21.37m/s Tricuspid Valve TR Velocity2.76m/s [id number] Other Information Technically limited study due to body habitus. Conclusion Left ventricle: Left ventricle was normal-sized. Concentric left ventricular hypertrophy was seen. LVEF was hyperdynamic. The LVEF was around 75%. Right ventricle: Right ventricle is normal size with normal systolic function. Left atrium was mass ively dilated. Right atrium was moderately dilated. Aortic valve: Aortic valve was trileaflet. Aortic sclerosis with no stenosis was seen. There was no aortic insufficiency. Mitral valve: Significant mitral annular calcification was observed. Signifi cant mitral stenosis can not be ruled out. Up to moderate mitral regurgitation is seen. Tricuspid valve: Mild tricuspid regurgitation and mild pulmonary valve insufficiency was seen. Right ventricular systolic pressure was assessed around 40 mm Hg. Consider LIYAH for better evaluation of mitral valve.
--- NOTE | 2025-04-19 14:11 | ECG ---
[facility] Test Date: 2025-04-14 Test Time: 11:28:39 Pat Name: MARTHA DAVIS Department: ED Room: [facility]7T B Gender: F District Ranger: GRACY : 1955 Requested By: MONIQUE OVERTON Order Number: [id number] Reading MD: Measurements Intervals Calcium Rate: 66 P: 58 AK: 169 QRS: 30 QRSD: 109 T: 20 QT: 463 QTc: 486 Interpretive Statements Sinus rhythm Incomplete left bundle branch block Low voltage, precordial leads Borderline prolonged QT interval Please click the below link to view image of tracing.
--- NOTE | 2025-04-19 14:11 | ECG ---
[facility] Test Date: 2025-04-14 Test Time: 10:14:22 Pat Name: MARTHA DAVIS Department: ED Room: [facility]7T B Gender: F Network Support Engineer: GRACY : 1955 Requested By: MONIQUE OVERTON Order Number: [id number] Reading MD: Measurements Intervals [place] Rate: 65 P: 49 ME: 48 QRS: 13 QRSD: 124 T: 18 QT: 446 QTc: 464 Interpretive Statements Sinus rhythm Short ME interval Probable left atrial enlargement IVCD, consider atypical LBBB Please click the below link to view image of tracing.
== END 2025-04-15 19:44 | disposition home or self-care (01) | DRG 291 ==
LOC: EDBD 10:00 → ER 10:00 → OVERFLOW 18:06 → TELE-WESTW 18:10
PROVIDERS: ADMIT Internal Medicine; ATTEND Internal Medicine
PROC: 05HD33Z Insertion of Infusion Device into Right Cephalic Vein, Percutaneous Approach (ICD-10-PCS; principal; 2025-04-14)
PROC: B54MZZA Ultrasonography of Right Upper Extremity Veins, Guidance (ICD-10-PCS; 2025-04-14)
DX: I11.0 Hypertensive heart disease with heart failure (principal); I50.33 Acute on chronic diastolic (congestive) heart failure; I69.354 Hemiplegia and hemiparesis following cerebral infarction affecting left non-dominant side; I42.9 Cardiomyopathy, unspecified; E78.5 Hyperlipidemia, unspecified; G89.29 Other chronic pain; M54.50 Low back pain, unspecified; I95.9 Hypotension, unspecified; Z96.643 Presence of artificial hip joint, bilateral; M54.9 Dorsalgia, unspecified; E07.9 Disorder of thyroid, unspecified; I34.2 Nonrheumatic mitral (valve) stenosis; E66.9 Obesity, unspecified; Z98.84 Bariatric surgery status; Z90.49 Acquired absence of other specified parts of digestive tract; Z98.891 History of uterine scar from previous surgery; Z79.82 Long term (current) use of aspirin; Z79.891 Long term (current) use of opiate analgesic; Z79.899 Other long term (current) drug therapy; Z79.1 Long term (current) use of non-steroidal anti-inflammatories (NSAID); Z88.1 Allergy status to other antibiotic agents; Z82.49 Family history of ischemic heart disease and other diseases of the circulatory system; Z82.5 Family history of asthma and other chronic lower respiratory diseases; Z80.0 Family history of malignant neoplasm of digestive organs; Z83.3 Family history of diabetes mellitus; Z79.01 Long term (current) use of anticoagulants; Z86.718 Personal history of other venous thrombosis and embolism; Z68.33 Body mass index [BMI] 33.0-33.9, adult
CPT/HCPCS: 36415; 71045; 71275; 80048; 81001; 83880; 84484; 85025; 93306; 93970; 99291; G0378